=== PATIENT | male | born 1965 | race Caucasian/White ===

== ENCOUNTER 2021-12-17 15:23 | Outpatient (REF) | payer OTHER, SELFPAY ==
[2021-12-17 17:40] LABS: Anion Gap 9.6 mmol/L (3-11); BUN 16 mg/dL (7-18); CO2 26.4 mmol/L (21.0-32.0); CREATININE 1.1 mg/dL (0.70-1.30); Calcium 9.4 mg/dL (8.5-10.1); Chloride 103 mmol/L (98-107); Glucose 99 mg/dL (74-106); Potassium 4.3 mmol/L (3.5-5.1); Sodium 139 mmol/L (136-145); Vitamin B12 464 pg/mL (193-986)
== END 2021-12-17 15:24 | disposition home or self-care (01) ==
LOC: NCHCN 15:23
PROVIDERS: PCP Family Medicine; Visit Provider Family Medicine
DX: K91.2 Postsurgical malabsorption, not elsewhere classified (principal); I10 Essential (primary) hypertension
CPT/HCPCS: 80048; 82607

== ENCOUNTER 2023-01-06 12:35 | Outpatient (REF) | payer OTHER, SELFPAY ==
[2023-01-06 15:36] LABS: Anion Gap 6.4 mmol/L (3-11); BUN 15 mg/dL (7-18); CO2 29.6 mmol/L (21.0-32.0); CREATININE 0.9 mg/dL (0.70-1.30); Calcium 9.2 mg/dL (8.5-10.1); Chloride 101 mmol/L (98-107); Estimated GFR 100.86 (mL/min/1.73m2); Glucose 94 mg/dL (74-106); Potassium 4.1 mmol/L (3.5-5.1); Sodium 137 mmol/L (136-145); Vitamin B12 607 pg/mL (193-986)
[2023-01-07 21:53] LABS: PSA, Screening 0.9 ng/mL (<=3.5)
== END 2023-01-06 12:36 | disposition home or self-care (01) ==
LOC: NCHCN 12:35
PROVIDERS: PCP Family Medicine; Visit Provider Family Medicine
DX: K91.2 Postsurgical malabsorption, not elsewhere classified (principal); Z00.00 Encounter for general adult medical examination without abnormal findings; I10 Essential (primary) hypertension; Z87.19 Personal history of other diseases of the digestive system; Z12.5 Encounter for screening for malignant neoplasm of prostate
CPT/HCPCS: 80048; 84153; 82607

== ENCOUNTER 2024-01-12 11:58 | Outpatient (REF) | payer OTHER, SELFPAY ==
[2024-01-12 16:55] LABS: Anion Gap 8.2 mmol/L (3-11); BUN 16 mg/dL (7-18); CO2 28.8 mmol/L (21.0-32.0); Calcium 9.3 mg/dL (8.5-10.1); Calculated LDL 107 mg/dL (<100); Chloride 103 mmol/L (98-107); Cholesterol 181 mg/dL (<200); Estimated GFR 88.33 (mL/min/1.73m2); Glucose 87 mg/dL (74-106); HDL Cholesterol 58 mg/dL (40-60); Potassium 3.9 mmol/L (3.5-5.1); Sodium 140 mmol/L (136-145); TSH 1.64 uIU/Ml (0.36-3.74); Triglyceride 81 mg/dL (<150)
== END 2024-01-12 11:59 | disposition home or self-care (01) ==
LOC: NCHCN 11:58
PROVIDERS: PCP Student in an Organized Health Care Education/Training Program; Visit Provider Student in an Organized Health Care Education/Training Program
DX: I10 Essential (primary) hypertension (principal); E78.5 Hyperlipidemia, unspecified; R53.83 Other fatigue
CPT/HCPCS: 80048; 80061; 84443

== ENCOUNTER 2024-05-06 06:07 | Day surgery (SDC) | payer OTHER, SELFPAY ==
--- NOTE | 2024-05-05 18:24 | W.PM.DSUDISC ---
Date of service: 05/06/24 Discharge Plan Disposition Patient Disposition: Home Condition: Good Discharge Details Reason For Visit: screening colonoscopy Attending Provider: Sha Jose Primary Care Provider: Mark Shanks Home Meds and New Rx's Prescriptions: Continued losartan 50 mg tablet 50 mg PO DAILY rosuvastatin 10 mg tablet 10 mg PO DAILY Discharge Instructions Additional Instructions: Jonathan, I hope you are comfortable during the procedure today and that you have a great afternoon. Everything went very smoothly. As you probably recall from our conversation, I did find, and removed 3 polyps today. All 3 of these are extremely small with regards to typical sizes for polyps, and retrieval was very straightforward. I suspect the 2 of these polyps are probably hyperplastic, and pose no significant risk, regardless, I will send all 3 of them to the pathologist for review. As you may or may not know, non-hyperplastic, or adenomatous, polyps to come in a couple different types, which are thought to carry different risks for colon cancer over the course of the patient's life, and those details are what we used to help determine the timing of subsequent colonoscopies. The report from the polyp analysis usually takes a week or so, but as soon as I get that information I will let you know. In the big picture, however, I do not think you have anything at all to worry about. If you need anything, or have any questions at all, please call. [phone]. Have a great weekend. 1. If tolerated, consume a soft, low fiber diet for 1-2 days. [address] Do not drive, drink alcohol, operate machinery, make critical decisions, or do activities that require coordination or balance for 24 hours. 3. Because air was put into your colon during the procedure, expelling air from your rectum (passing gas or farting) is normal. 4. You may not have a bowel movement for 1-3 days because of the colonoscopy prep. This is normal. 5. Go directly to the emergency room if you notice any of the following: Develop chills (warm to touch), or if you have a thermometer and your temperature is above 101 Difficulty breathing or difficultly swallowing Persistent vomiting Severe abdominal pain, other than gas cramps Severe chest pain Black, tarry stools Any bleeding ? exceeding one tablespoon 6. Call your physician if the site where your intravenous was started becomes red, swollen, painful, and warm to touch. 7. Your physician has reviewed your pre-procedure medications. Please continue to take those medications as previously ordered. You will be given specific information/education regarding any changes to your medications before leaving. Activity:: Activity as Tolerated Diet:: As Tolerated Discharge Orders Discharge Orders: Discharge Order (Routine); Ordered 05/05/24 Ordered By: Sha Jose DS: Diagnosis Discharge Diagnosis (1) Encounter for screening colonoscopy: Status: Acute Asessment and Plan: Follow-up on polypectomy results
--- NOTE | 2024-05-05 18:26 | COLE_ITS ---
Date of service: 05/06/24 Time of Service: 08:02 Colonoscopy Report Date of procedure: 05/06/24 Pre-op diagnosis general: screening colonoscopy Post-op diagnosis procedure note: other (Colon polyps, diverticulosis) Procedure: colonoscopy with polypectomy Surgeon: Sha Jose Anesthesia Type: General:No Airway Estimated blood loss (mL): 5 Pathology: other (0.25 cm polyp at 40 cm, 0.25 cm polyps at 30 cm x 2) Complications: None Disposition: same day Indications: Jonathan is a 58 year old man with a first degree family history of colon cancer. He needs his next screening colonoscopy Prep: Miralax/Dulcolax Procedure Start Time: 07:33 Procedure End Time: 07:39 Retraction Time: 10 Findings: Rare sigmoid diverticulosis, 0.25 cm polyp at 40 cm, 0.25 cm polyps at 30 cm x 2 Procedure Description: After the induction of anesthesia, and with Dr. Menjivar in left lateral decubitus position, I began by performing an external anorectal exam.? Perineum and skin were normal, as was the anal verge.? There was no evidence of external h emorrhoids.? Next, I performed a digital rectal exam.? This felt normal.? Next, I advanced a colonoscope into the rectal vault.? I performed retroflexion.? This appeared normal.? Using insufflation, I then advanced the colonoscope beyond the rectal folds and into the sigmoid colon before advancing towards the cecum.? There were some rare sigmoid diverticula.? The scope was noted to be in the cecum by identification of the ileocecal valve and appendiceal orifice.? I then began withdrawing the colonoscope using repeated irrigation as necessary for full evaluation of the colonic mucosa. Around 40 cm from the anal verge was a 0.25 cm polyp. Narrowband imaging was used to assist with the analysis. Some features seem consistent with a adenomatous polyp, cold forceps were utilized to remove this. There is minimal bleeding from the polypectomy site. 2 other polyps were found around 30 cm from the anal verge. These were immediately adjacent to 1 another. Each of these was less than 0.25 cm, and each polyp was removed with cold forceps. These were sent as a single specimen. There was minimal bleeding from the resection site. Once the scope was withdrawn to the level of the rectum, great care was taken to examine portions of the rectal folds.? Finally, the scope was withdrawn and the patient was brought to the same-day surgery recovery unit as the anesthetic wore off. ?The findings and instructions were shared with the patient prior to discharge. [place] Bowel Prep [place] Bowel Prep Right Colon: 3 Left Colon: 3 Transverse Colon: 3 Total Score: 9
--- OUTSIDE RECORDS SUMMARY | 2024-05-06 06:09 | XMS_ITS | Encounter Summary ---
Author Organization [facility] Address [address] [place] [address] Care Team Providers Care Executive Manager Name Role Phone Debo Sahu MD Primary Care Provider Encounter Details Date Type Department Care Team (Late st Contact Info) Description 11/14/2020 Lab Requisition [facility] Pathology & Laboratory Medicine - [address] [id number] Outr Resulting Lab, Provider Social History Tobacco Use Types Packs/Day Years Used Date Smoking Tobacco: Never Assessed Sex and Gender Information Value Date Recorded Sex Assigned at Not on file Legal Sex Male 17:39 EST Gender Identity Not on file Sexual Orientation Not on file documented as of this encounter Plan of Treatment Not on file documented as of this encounter Procedures Procedure Name Priority Date/Time Associated Diagnosis Comments MEASLES IGG AB Routine 11/14/2020 16:02 EDT RUBELLA IGG ANTIBODY Routine 11/14/2020 16:02 EDT HEPATITIS B SURFACE ANTIBODY Routine 11/14/2020 16:02 EDT VARICELLA IGG ANTIBODY Routine 11/14/2020 16:02 EDT MUMPS ANTIBODY IGG Routine 11/14/2020 16 :02 EDT documented in this encounter Results * HEPATITIS B SURFACE ANTIBODY (11/14/2020 16:02 EDT) Hep B Surface Ab, Quantitative 33.7 See Note mIU/mL 11/15/2020 10:34 EDT [facility] Comment: Reference Range for Hep B Surface Ab, Quant: Positive: >= 10.0 mIU/mL Negative: ??< 10.0 mIU/mL Patient is presumed to be immune to infection with Hepatitis B Virus. Hep B Surface Ab, Qualitative Positive See Note 11/15/2020 10:34 EDT [facility] Comment: Reference Range for Hep B Surface Ab, Qual: Unvaccinated: ??Negative Vaccinated: ??Positive Blood VENOUS BLOOD / Unknown 11/14/2020 16:02 EDT 11/14/2020 20:41 EDT us Provider Outr Resulting Lab CHEMISTRY & BLOOD GA S ORDERABLES Final Result Performing Organization Address [facility]/ZIP Co de Phone Number [facility] [address] [place] [address] * MEASLES IGG AB (11/14/2020 16:02 EDT) Measles IgG Ab Positive See Note 11/15/2020 10:20 EDT [facility] Comment:Presence of detectab le measles virus IgG antibodies. Blood VENOUS BLOOD / Unknown 11/14/2020 16:02 EDT 11/14/2020 20:41 EDT us Provider Outr Resulting Lab IMMUNOLOGY AND SEROL OGY ORDERABLES Final Result Performing Organization Address [facility] Co de Phone Number [facility] [address] [place] [address] * VARICELLA IGG ANTIBODY (11/14/2020 16:02 EDT) Varicella IgG Ab Positive See Note 11/15/2020 10:17 EDT [facility] Comment:Presence of detectab le Varicella Zoster virus IgG antibodies. Blood VENOUS BLOOD / Unknown 11/14/2020 16:02 EDT 11/14/2020 20:41 EDT us Provider Outr Resulting Lab IMMUNOLOGY AND SEROL OGY ORDERABLES Final Result Performing Organization Address City/[facility]/ZIP Co de Phone Number [facility] [address] [place] [address] * MUMPS ANTIBODY IGG (11/14/2020 16:02 EDT) Mumps Antibody IgG Positive See Note 11/15/2020 10:20 EDT [facility] Comment:Presence of detectab le mumps virus IgG antibodies. Blood VENOUS BLOOD / Unknown 11/14/2020 16:02 EDT 11/14/2020 20:41 EDT us Provider Outr Resulting Lab IMMUNOLOGY AND SEROL OGY ORDERABLES Final Result Performing Organization Address [facility] Co de Phone Number [facility] [address] [place] [address] * RUBELLA IGG ANTIBODY (11/14/2020 16:02 EDT) Rubella IgG Ab Positive See Note 11/15/2020 10:22 EDT [facility] Comment:Positive for IgG ant ibodies to Rubella virus. Blood VENOUS BLOOD / Unknown 11/14/2020 16:02 EDT 11/14/2020 20:41 EDT us Provider Outr Resulting Lab CHEMISTRY & BLOOD GA S ORDERABLES Final Result Performing Organization Address [facility] Co de Phone Number [facility] [address] [place] [address] documented in this encounter Visit Diagnoses Not on filedocumented in this encounter Care Teams Executive Manager Relationship Specialty Start Date End Date Debo Sahu MD PCP - General 03/24/15 documented as of this encounter
--- OUTSIDE RECORDS SUMMARY | 2024-05-06 06:09 | XMS_ITS | Clinical Summary ---
Author Organization [facility] Address [address] [place] [address] Care Team Providers Care Dispatcher Chief Coal Slurry Name Role Phone Debo Sahu MD Primary Care Provider Social History Tobacco Use Types Packs/Day Years Used Date Smoking Tobacco: Never Assessed Sex and Gender Information Value Date Recorded Sex Assigned at Not on file Legal Sex Male 17:39 EST Gender Identity Not on file Sexual Orientation Not on file Plan of Treatment Health Maintenance Due Date Last Done Comments Hepatitis C Screen 1965 Hepatitis B Vaccine (1 of 3 - 19+ 3-dose series) 08/24 COVID-19 Vaccine (2023- season) 2024 Care Teams Dispatcher Chief Coal Slurry Relationship Specialty Start Date End Date Debo Sahu MD PCP - General 03/24/15
--- OUTSIDE RECORDS SUMMARY | 2024-05-06 06:09 | XMS_ITS | Encounter Summary ---
Author Organization [facility] Address [address] [place] [address] Care Team Providers Care Cook Dinner Name Role Phone Debo Sahu MD Primary Care Provider Encounter Details Date Type Department Care Team (Late st Contact Info) Description 01/07/2023 Lab Requisition [facility] Pathology & Laboratory Medicine - [address] [phone] Outr Resulting Lab, Provider Social History Tobacco [...] Procedure Name Priority Date/Time Associated Diagnosis Comments PSA TOTAL, DIAGNOSTIC Routine 01/06/2023 10:15 EDT documented in this encounter Results * PSA TOTAL, DIAGNOSTIC (01/06/2023 10:15 EDT) PSA 0.9 <=3.5 ng/mL 01/07/2023 21:48 EDT [facility] Blood VENOUS BLOOD / Unknown 01/06/2023 10:15 EDT 01/07/2023 17:37 EDT Narrative [facility] - 01/07/2023 21:48 EDT NOTE: Serum PSA concentration should not be interpreted as absolute evidence for the presence or absence of malignant disease. Assayed on Siemens ADVIA Centaur XPT using chemiluminescent technology.??Values obtained by using different assay methods cannot be used interchangeably. us Provider Outr Resulting Lab CHEMISTRY & BLOOD GA S ORDERABLES Final Result [facility] [address] [place] [address] documented in this encounter Visit Diagnoses Not on filedocumented in this encounter Care Teams Cook Dinner Relationship Specialty Start Date End Date Debo Sahu MD PCP - General 03/24/15 documented as of this encounter
--- OUTSIDE RECORDS SUMMARY | 2024-05-06 06:09 | XMS_ITS | Encounter Summary ---
Author Organization [facility] Address [address] [place] [address] Care Team Providers Care Operations Administrator Name Role Phone Unavailable Primary Care Provider Unavailabl e Encounter Details Date Type Department Care Team (Late st Contact Info) Description 11/05/1999 Results Only [facility] Employee Health - Main [place] [address] [place], [place] [address] Health, Nurse Employee Social History Tobacco Use Types Packs/Day Years [...] Associated Diagnosis Comments MEASLES IGG AB Routine 11/05/1999 8:09 EDT HEPATITIS B SURFACE ANTIBODY Routine 11/05/1999 8:09 EDT documented in this encounter Results * RUBEOLA IGG ANTIBODY (11/05/1999 8:09 EDT) Rubeola IgG Ab Antibody detected [facility] 11/05/1999 8:09 EDT 11/05/1999 8:27 EDT us Nurse Employee Health IMMUNOLOGY AND SEROLOGY OR DERABLES Final Result [facility] [address] [place] [address] * HEPATITIS B SURFACE ANTIBODY (11/05/1999 8:09 EDT) Hepatitis B Surface Ab Pos [facility] 11/05/1999 8:09 EDT 11/05/1999 8:27 EDT us Nurse Employee Health CHEMISTRY & BLOOD GAS VINCE MORRIS Final Result Performing Organization Address City/State/[facility] Co de Phone Number [facility] [address] [place] [phone] documented in this encounter Visit Diagnoses Not on filedocumented in this encounter
--- OUTSIDE RECORDS SUMMARY | 2024-05-06 06:09 | XMS_ITS | Encounter Summary ---
Author Organization [facility] Address [address] [place] [address] Care Team Providers Care Fourth Grade Teacher Name Role Phone Debo Sahu MD Primary Care Provider Encounter Details Date Type Department Care Team (Late st Contact Info) Description 11/15/2020 Lab Requisition [facility] Pathology & Laboratory Medicine - [address] [address] Outr Resulting Lab, Provider Social History Tobacco [...] Procedure Name Priority Date/Time Associated Diagnosis Comments QUANTIFERON TB GOLD PLUS Routine 11/14/2020 16:02 EDT documented in this encounter Results * QUANTIFERON TB GOLD PLUS (11/14/2020 16:02 EDT) Quantiferon Interpretation Negative Negative 11/16/2020 13:56 EDT [facility] Comment: No interferon-gamma response to M. tuberculosis antigens was detected. ??Infection with M. tuberculosis is unlikely. A single negative result does not exclude infection with M. tuberculosis. ??In patients at high risk for M. tuberculosis infection, a second test should be considered in accordance with the 2017 ATS/IDSA/CDC Clinical Practice Guidelines for Diagnosis of Tuberculosis in Adults and Children. [Agustina GARCÍA et. al. Clin. Infect. Dis. 2017:64 (2) ??: 111-115]. Results were obtained with the [employer] QuantiFERON TB Gold Plus MESSI. TB1 Ag minus Nil 0.01 IU/ml 11/17/19 13:56 EDT [facility] TB2 Ag minus Nil 0.01 IU/mL 11/17/19 13:56 EDT [facility] Blood VENOUS BLOOD / Unknown 11/14/2020 16:02 EDT 11/15/2020 15:50 EDT Narrative [facility] - 11/16/2020 13:56 EDT Results were obtained with the [employer] QuantiFERON-TB Gold Plus MESSI. us Provider Outr Resulting Lab CHEMISTRY & BLOOD GA S ORDERABLES Final Result [facility] [address] [place] [address] documented in this encounter Visit Diagnoses Not on filedocumented in this encounter Care Teams Fourth Grade Teacher Relationship Specialty Start Date End Date Debo Sahu MD PCP - General 03/24/15 documented as of this encounter
--- OUTSIDE RECORDS SUMMARY | 2024-05-06 06:09 | XMS_ITS | Referral Summary ---
Author Organization [facility] Address [address] [place] [address] Care Team Providers Care Batch Still Operator Name Role Phone Debo Sahu MD Primary Care Provider Social History Tobacco Use Types Packs/Day Years Used Date Smoking Tobacco: Never Assessed Sex and Gender Information Value Date Recorded Sex Assigned at Not on file Legal Sex Male 17:39 EST Gender Identity Not on file Sexual Orientation Not on file Plan of Treatment Not on file Care Teams Batch Still Operator Relationship Specialty Start Date End Date Debo Sahu MD PCP - General 03/24/15
[2024-05-06 06:15] VITALS: BP 165/96; PULSE 82; RESP 17; TEMP 36.3; O2SAT 98
[2024-05-06] MEDS: Normal Saline 500 ML 30 ML IV (06:30)
--- NOTE | 2024-05-06 06:56 | W.ANESPRE ---
General Info Date of Service Date Performed: 05/06/24 Height: 5 ft 9 in Weight: 84.3 kg Body Mass Index (BMI): 27.4 Surgical Procedure: Operation Date: 05/06/24 07:35 Proposed Procedure Side Surgeon p Colonoscopy Sha Jose MD Meds Allergies and Home Medications Allergies Allergy/AdvReac Type Severity Reaction Status Date / Time atorvastatin (From Lipitor) AdvReac Intermediate myalgias Verified 05/06/24 06:20 lisinopril AdvReac Mild cough Verified 05/06/24 06:20 pravastatin AdvReac Mild myalgias Verified 05/06/24 06:20 Home Medication ?Medication ?Instructions ?Recorded losartan 50 mg tablet 50 mg PO DAILY 04/13/24 rosuvastatin 10 mg tablet 10 mg PO DAILY 04/13/24 Current Visit Medications: Current Medications Generic Name Dose Route Start Last Admin Trade Name Freq PRN Reason Stop Dose Admin Sodium Chloride 500 mls @ 30 mls/hr 05/06/24 06:15 05/06/24 06:30 Saline 500ml Bag IV 06/05/24 06:14 30 mls/hr INFUSION RHINA Administration IV Miscellaneous Supplies 1 each 05/06/24 06:00 Iv Access IV 06/04/24 23:59 DIRECTED RHINA Ondansetron HCl 4 mg 05/05/24 18:28 Ondansetron 4 Mg/2 Ml Vial IVP 06/04/24 18:27 Q4H PRN PRN Nausea / Vomiting Sodium Chloride 0 ml 05/06/24 06:00 Normal Saline Flush 10 Ml Syr IV 06/04/24 23:59 PRN PRN Sodium Chloride 0 ml 05/06/24 06:00 Normal Saline 10 Ml Vial IJ 06/04/24 23:59 DIRECTED PRN Sterile Water 0 ml 05/06/24 06:00 Water,Injection,Sterile 10 Ml Vial IJ 06/04/24 23:59 DIRECTED PRN PFSH Active Problems Active Problems: Problem Status Onset Code Encounter for screening colonoscopy Acute Z12.11 Essential hypertension Acute I10 Hyperlipidemia Acute E78.5 Medical History Medical History Family history of colon cancer in mother referral reports mother in her 70's History of intussusception of intestine Digestive system disorder Hypoglycemia Postoperative malabsorption Family history of malignant neoplasm of prostate Surgical History Surgical History History of bowel resection (~1967) H/O right inguinal hernia repair (~2004) History of colonoscopy (~05/21/18) Tobacco Smoking/Tobacco Use Status: Never Alcohol Alcohol Intake: never Substance Use Substance use: Never Substance use type: does not use Vital Signs and Lab Results Vital Signs Most Recent Vital Signs in EMR: Most Recent Vital Signs Temp Pulse Resp BP Pulse Ox 36.3 C L 82 17 165/96 H 98 05/06/24 06:15 05/06/24 06:15 05/06/24 06:15 05/06/24 06:15 05/06/24 06:15 Lab Results Blood Type / Crossmatch: No Data to Display Complete Blood Count: No Data to Display Complete Metabolic Panel: No Data to Display Liver Function Panel: No Data to Display Coagulation Panel: No Data to Display Cardiac Panel: No Data to Display Arterial Blood Gas: No Data to Display Venous Blood Gas: No Data to Display Pancreas Panel: No Data to Display Thyroid Panel: No Data to Display Infectious Disease: No Data to Display Blood Cultures: No Data to Display Toxicology Panel: No Data to Display Anesthesia Assessment and Plan Anesthesia History Personal History: No History of Anesthesia Complications Family History: No Family History of Anesthesia Complications Exercise Tolerance Exercise Tolerance: Metabolic Equivalents>4 Pertinent Negatives Pertinent Negatives: No Symptoms of GERD, No Major Cardiovascular Symptoms or Complaints, No Major Pulmonary Symptoms or Complaints and No History of CVA/TIA Cardiac & Pulmonary Exam Cardiac Exam: Normal S1/S2 Heart Sounds Pulmonary Exam: Clear Bilateral Breath Sounds Implantable Cardiac Device Does patient have a Pacemaker or an ICD?: No Airway Exam Known Difficult Airway: No Mallampati Class: 2 Mouth Opening: Normal (> 3cm) Thyromental Distance: Greater than 3 cm Neck Range of Motion: Full ROM Neck Circumference: Normal Teeth Condition: Normal Dentition ASA Classification ASA Score: ASA 2 Emergency Case?: No NPO Status NPO Status: NPO Clears >2 hours, Solids >8 hours Anesthesia Plan Resuscitation Status: Full Code Anesthesia Technique: General Anesthesia Airway Planned: Natural Airway Monitors Used: Standard Monitors
[2024-05-06 07:37] VITALS: BMI 27.4
--- NOTE | 2024-05-06 07:45 | BOWEL_PTH ---
PATIENT: Jonathan Menjivar LOC: [facility] U#:[id number] AGE/SX: 58/M ROOM: RE05/06/[address]: Sha Jose MD : 1965 BED: DIS: 05/06/2024 SPEC #: [id number] RECD: 05/06/24 09:39 STATUS: TARA REQ #: [id number] SHELIA: 05/06/24 07:[address]: Sha Jose DEPT: Surgical Specimen RECD BY: Harriet Hartley ENTERED: 05/06/24 09:39 SP TYPE: Bowel OTHR DR: Mark Shanks Tissues: 1 - BIOPSY BOWEL 2 - BIOPSY BOWEL Procedures: GROSS AND MICRO LEVEL 4 Comments: [id number]
[2024-05-06 07:53] VITALS: BP 137/86; PULSE 83; RESP 16; TEMP 36.6; O2SAT 97
--- NOTE | 2024-05-06 08:16 | W.ANESPOSTOP ---
Postoperative Evaluation Date, Time and Location Date Performed: 05/06/24 Time Performed: 08:16 Patient Location: Day Surgery Unit Vital Signs Most Recent Imported Vital Signs: Most Recent Vital Signs Temp Pulse Resp BP Pulse Ox 36.6 C 83 16 137/86 97 05/06/24 07:53 05/06/24 07:53 05/06/24 07:53 05/06/24 07:53 05/06/24 07:53 Pain Score Most Recent Pain Score: Most Recent Pain Score Pain Level 0 05/06/24 07:53 Assessment Mental Status: Awake (Alert & Oriented to Patient Baseline) Airway and Respiratory Function: Patent airway with normal (patient baseline) respiratory exam Cardiovascular Function: Hemodynamically Stable Hydration Status: Adequately Hydrated Nausea & Vomiting: No Nausea or Vomiting Pain: Pt. Denies Any Pain Peripheral Nerve Block: Patient did not receive a nerve block
[2024-05-06 08:20] VITALS: BP 155/95; PULSE 65; RESP 16; TEMP 36.3; O2SAT 98
== END 2024-05-06 08:34 | disposition home or self-care (01) ==
LOC: SUR 06:08
PROVIDERS: PCP Student in an Organized Health Care Education/Training Program; Visit Provider Surgery
PROC: 0DJD8ZZ Inspection of Lower Intestinal Tract, Via Natural or Artificial Opening Endoscopic (ICD-10-PCS; CPT 45378; principal; 2024-05-06 07:30)
DX: Z12.11 Encounter for screening for malignant neoplasm of colon (principal); I10 Essential (primary) hypertension; Z80.0 Family history of malignant neoplasm of digestive organs; K63.5 Polyp of colon; K57.30 Diverticulosis of large intestine without perforation or abscess without bleeding
CPT/HCPCS: 45380; 88305; J2704

== ENCOUNTER 2024-11-29 15:37 | Outpatient (REF) | payer OTHER, SELFPAY ==
[2024-11-29 16:44] LABS: Anion Gap 10.6 mmol/L (3-11); BUN 15 mg/dL (7-18); CO2 26.4 mmol/L (21.0-32.0); Calcium 9.3 mg/dL (8.5-10.1); Chloride 103 mmol/L (98-107); Estimated GFR 99.62 (mL/min/1.73m2); Glucose 97 mg/dL (74-106); Potassium 4.2 mmol/L (3.5-5.1); Sodium 140 mmol/L (136-145)
== END 2024-11-29 15:38 | disposition home or self-care (01) ==
LOC: NCHCN 15:37
PROVIDERS: PCP Student in an Organized Health Care Education/Training Program; Visit Provider Student in an Organized Health Care Education/Training Program
DX: I10 Essential (primary) hypertension (principal)
CPT/HCPCS: 80048

== ENCOUNTER 2025-03-01 13:41 | Outpatient (REF) | payer OTHER, SELFPAY ==
[2025-03-01 21:05] LABS: Abs Immature Grans 0.01 10^3/uL (0.0-0.06); HCT 43.8 % (40.0-50.0); HGB 15.1 g/dL (13.5-17.5); Immature Grans % 0.3 %; MCH 29.7 pg (27.0-33.0); MCHC 34.5 % (32.0-36.0); MCV 86 fL (80-95); MPV 10.2 fL (8.0-11.0); Platelet Count 224 10^3/uL (130-400); RBC 5.08 10^6/uL (4.36-5.78); RDW 12.4 % (11.8-14.1); RDW-SD 38.8 fL; WBC 3.97 10^3/uL (4.4-10.8)
[2025-03-01 21:23] LABS: TSH (W/Ref FT4) 1.32 uIU/mL (0.36-3.74)
[2025-03-02 17:36] LABS: PSA, Screening 1.4 ng/mL (<=3.5)
== END 2025-03-01 13:42 | disposition home or self-care (01) ==
LOC: NCHCN 13:41
PROVIDERS: PCP Student in an Organized Health Care Education/Training Program; Visit Provider Student in an Organized Health Care Education/Training Program
DX: I10 Essential (primary) hypertension (principal); Z12.5 Encounter for screening for malignant neoplasm of prostate
CPT/HCPCS: 84153; 84443; 85025